=== PATIENT | male | born 1995 | race Caucasian/White ===

== ENCOUNTER → 2021-12-09 13:22 | Outpatient (BNVA) | payer MEDICAID, SELFPAY | PROVIDERS: Family Provider Family Medicine; Visit Provider Podiatrist Foot & Ankle Surgery | DX: X58.XXXA Exposure to other specified factors, initial encounter (principal); M79.672 Pain in left foot; T84.223A Displacement of internal fixation device of bones of foot and toes, initial encounter; M67.90 Unspecified disorder of synovium and tendon, unspecified site | CPT/HCPCS: 99204 ==

== ENCOUNTER → 2021-12-09 13:28 | Outpatient (BNVA) | payer MEDICAID, SELFPAY | PROVIDERS: Family Provider Family Medicine; Visit Provider Podiatrist Foot & Ankle Surgery | DX: M79.671 Pain in right foot (principal) | CPT/HCPCS: 73630 ==

== ENCOUNTER 2021-12-17 10:13 | Day surgery (SDC) | payer MEDICAID, SELFPAY ==
[2021-12-16 13:57] VITALS: BMI 33.0
[2021-12-17] VITALS (7 sets, daily range): BP systolic 112–175; BP diastolic 68–106; PULSE 78–101; RESP 16–18; TEMP 36.2–37.3; O2SAT 91–97
[2021-12-17] MEDS: gabapentin 300 mg Capsule PO (10:58)
[2021-12-17] MEDS: CELEcoxib 200 mg Capsule 400 MG PO (10:58)
[2021-12-17] MEDS: sodium chloride 0.9% 1,000 ML 30 ML IV (10:59)
--- NOTE | 2021-12-17 11:55 | W.PM.OPSUD ---
Surgery/Procedure H&P Update DATE OF PROCEDURE: December 17, 2021 DATE H&P PERFORMED: 12/09/21 CHANGES TO PREVIOUS DOCUMENTATION: none PREOP DIAGNOSIS: Painful retained orthopedic hardware left foot; PLANNED PROCEDURE: Operation Date: 12/17/21 12:00 Proposed Procedures p Hardware removal right foot 2.Exostectomy 89750 3.Tendon transfer 04328,T84.223,M24.574(Right) - SHERRY Banks Exostectomy(Right) - SHERRY Banks Tendon Transfer Foot(Right) - Eric Fuller DPM
[2021-12-17] MEDS: ceFAZolin 2,000 MG in sodium chloride 0.9% (plus) 50 ML 100 MG IV (12:27)
--- NOTE | 2021-12-17 12:55 | PM.OP ---
Operative Report Date of procedure: December 17, 2021 Pre-op diagnosis: Painful retained hardware left foot Exostosis left foot Left peroneal tendinosis Post-op diagnosis: Painful retained hardware left foot. Exostosis of the left fifth metatarsal base and cuboid. Left peroneal brevis tendon tear. Procedure done: Deep hardware removal left foot foot 55114 Exostectomy left foot 80230 Tendon transfer left foot 35944 Implants: 10 cc of Exparel expanded with 10 cc of saline, 0.5% Marcaine plain injected preoperatively for total of 30 cc. 2-0 Vicryl, 4-0 Vicryl, 4-0 nylon, 0 Ethibond Specimens removed/disposition: Screw from fifth metatarsal removed in total. Pathology: None Surgeon: Eric Fuller DPM Homoeopath: Dr New Carlos Estimated blood loss: 0 See intraoperative documentation IV fluids: 0 Urine output: 0 Complications: None Findings: Proud hardware backing out of the fifth metatarsal of the left foot, exostosis of the fifth metatarsal base and lateral cuboid of the left foot. Tear of the left peroneal brevis tendon. Brief History: -Patient seen and evaluated. All patient questions answered to patient satisfaction -Discussed etiology of pain and that it is related to orthopedic hardware of left foot which is backing out.? Also discussed the possibility of having to reattach the peroneus brevis tendon as it inserts to the base of the fifth metatarsal tuberosity in this area.? Discussed conservative versus surgical options with the patient.? Patient wants proceed with surgery at this time. -I reviewed at length with the patient, the risks, potential complications, benefits, alternatives, expectations, and typical outcomes associated with thesurgery. The risks and potential complications were explained in detail, including but not limited to infection, wound dehiscence or soft tissue complications, bleeding and hematoma, chronic edema, neuritis or nerve damage producing numbness or chronic pain, CRPS, failure to relieve pain or worsening pain, thick / painful / unsightly scar, limited motion / stiffness, malposition, delayed union, malunion, or nonunion, fracture, reaction to implants, anesthetic complications, venous thromboembolism, and deformity, recurrence.? I discussed the notion of no regrets with the patient as it pertains to complications and outcomes. The patient seemed to understand the nature of the proposed care and required convalescence. They asked appropriate questions, answered to theirsatisfaction. They are aware no guarantees can be made as to a satisfactory outcome and they understand there may be other possible unforeseen complications or outcomes not listed here that will be treated accordingly if they arise. There were no written or implied guarantees given to the patient. They gave informed consent to proceed. -Patient to remain nonweightbearing to the left lower extremity using crutches/knee scooter -Prescription for knee scooter sent for the patient -We will plan for surgery 12/17/2021 for left foot hardware removal, fifth metatarsal exostectomy and possible peroneus brevis tendon transfer -We will follow-up with the patient 1 week postoperatively Procedure: Under mild sedation the patient was brought to the operating room and remained on the gurney in supine position. A timeout was performed. Anesthesia was then administered by the anesthesia service. Local anesthesia injected by myself consisting of 30 cc of 0.5% Marcaine plain left reverse Gordon block. Additional local anesthetic was infiltrated in a grid like fashion subcutaneously a total of 10 cc of Exparel and 10 cc of saline for expansion per train planner recommendation and technique. Well-padded pneumatic tourniquet applied to the left ankle. The left lower extremity was then scrubbed, prepped and draped utilizing normal aseptic technique. Left foot was exanguinated with an Esmarch bandage and the tourniquet inflated to 250 mmHg. Attention was directed to the lateral aspect of the left forefoot where bony landmarks were palpated, was able to identify the fifth metatarsal base and was able to palpate a proud screw through skin. Directly over the previous incision a #15 blade was utilized to perform an incision through skin and dissection carried down through subcutaneous tissue to the layer of the peroneal brevis tendon and base of the fifth metatarsal periosteum utilizing sharp and blunt technique. Care was taken to retract and preserve neurovascular and tendinous structures. All bleeders were ligated and cauterized as necessary. A hex lobe screwdriver utilized to extract the implanted screw in total and this was passed from operative field. Intraoperative fluoroscopy confirmed total removal of the screw without any fragmentation or failure. The incision was flushed with saline solution. Attention was then directed to the base of the fifth metatarsal where a loose osseous body was appreciated, this was excised in total with exostectomy performed utilizing pickups a #15 blade and all rough edges being smoothed at the fifth metatarsal base exostosis with a hand rasp. In like fashion a small exostosis at the dorsal lateral aspect of the left cuboid distally was also excised with exostectomy performed with rongeur and hand rasp for smoothing of all rough edges. The incision was then flushed with saline solution. Attention was directed to the peroneal brevis just prior to its insertion there was fibrosing with significant tenosynovitis which was sharply debrided with pickups and a 15 blade, nonabsorbable suture from previous surgery had significant fibrosing, this was excised in total and all previous suture was removed and passed from operative field. Under direct visualization the peritoneal tendon of the peroneal brevis was inspected and degenerative, thickening and tearing of the peroneal brevis was appreciated, devitalized for tendon was sharply debrided and excised and passed from operative field and the portions of the peroneal brevis tendon that were attached to the osseous body that was free-floating was remodeled and transferred more anteriorly and dorsally to the fifth metatarsal base utilizing a bone tunnel and 0 Ethibond with excellent bony apposition and tension noted. Incision was flushed with copious amounts of sterile saline solution followed by closure consisting of 2-0 Vicryl at deep fascia, 4-0 Vicryl subcutaneous tissue and 4-0 nylon at skin. Incision was then dressed with Adaptic, sterile 4 x 4's, Kerlix and a well-padded multilayer compressive posterior splint was applied to the left lower extremity with ankle in neutral position. Tourniquet was deflated and a prompt hyperemic response is noted to the distal digits of the left foot. Patient tolerated the procedure and anesthesia well and was transferred to the PACU with vital signs stable and vascular status intact. Following a period of postoperative monitoring he will be discharged home is to remain strict nonweightbearing and elevate his left foot at all times while resting. He was prescribed hydrocodone 10 to be taken every 6 hours as needed for pain and may supplement with [id number] ibuprofen up to 800 mg 3 times daily. Was given my cell phone number to contact me with any postoperative questions or concerns. Will follow-up in podiatry clinic next week.
--- NOTE | 2021-12-17 12:59 | XR_ITS ---
WS: [id number] Left foot, 3 views, 12/17/2021 Clinical Data: Postop hardware removal Comparison: Left foot, 12/09/2021 Findings: The orthopedic screw at the base of the left fifth metatarsal has been removed. The remainder of the left foot is unremarkable. XR/XR foot LT min 3V* [id number] Impression: Removal of orthopedic screw from base of left fifth metatarsal.
--- NOTE | 2021-12-17 13:26 | ANES.PREANE2 ---
Pre-Anesthetic Assessment Height/Weight: Height 1.78 m Weight 104.326 kg Temp Pulse Resp BP Pulse Ox O2 Del Method 99.2 F 101 H 18 175/106 96 12/17/21 10:36 12/17/21 10:36 12/17/21 10:36 12/17/21 10:36 12/17/21 10:36 12/17/21 10:54 Preop Diagnosis: Painful retained orthopedic hardware left foot; Operation Date: 12/17/21 12:00 Proposed Procedures p Hardware removal right foot 2.Exostectomy 73692 3.Tendon transfer 32559,T84.223,M24.574(Right) - Eric Fuller DPM s Exostectomy(Right) - SHERRY Banks Tendon Transfer Foot(Right) - Eric Fuller DPM Familial anesthetic complications: none Was Beta Traci taken within 24 hours: N/A Was Clonidine taken within 24 hours: N/A Last intake: Intake Last Liquid Date 12/16/21 Last Liquid Time 19:30 Last Solid Date 12/16/21 Last Solid Time 19:30 Social Tobacco (chews) and No alcohol smokes occ richard Airway Submandibular: within normal limits Cervical ROM: within normal limits Mallampati: Class II Dentition: full Metabolic Morbid Obesity Anesthetic Plan ASA status: 2 Anesthesia: General Medications/Allergies Home Medications Medication Instructions Recorded Confirmed Last Taken Type Knee Scooter #1 ea 12/09/21 12/09/21 Unknown Rx hydrocodone 10 mg-acetaminophen 1 tab PO Q6H PRN pain 7 days #28 12/17/21 Unknown Rx 325 mg tablet tabs Allergies Allergy/AdvReac Type Severity Reaction Status Date / Time Latex Allergy Mild ADR-Itching Uncoded 12/16/21 13:52 Tramadol Allergy Mild ADR-Headach Uncoded 12/09/21 13:42 e Current Medications Generic Name Dose Route Start Last Admin Trade Name Freq PRN Reason Stop Dose Admin Sodium Chloride 1,000 mls @ 30 mls/hr 12/17/21 10:45 12/17/21 10:59 Sodium Chloride 0.9% IV 12/18/21 10:44 30 mls/hr .Q24H HU Administration PFSH Anesthesia Social History Smoking and tobacco status: never smoked Data Anesthesia Cardiac Studies: No Data to Display
[2021-12-17] MEDS: HYDROcodone-acetaminophen 10-325 mg Tablet 1 TAB PO (14:17)
--- NOTE | 2021-12-17 16:52 | ANE.PACU2 ---
Inpatient post-anesthesia follow up: Airway intact: Yes Vital signs: Temperature 97.2 F Pulse Rate 78 Respiratory Rate 18 Blood Pressure 132/81 Pulse Oximetry 97 Oxygen Delivery Me thod Room Air Oxygen Flow Rate Fraction of Inspir ed Oxygen Hydration adequate: Yes Nausea and vomiting: No Pain level: 2 Mental status: Baseline
== END 2021-12-17 14:42 | disposition home or self-care (01) ==
PROVIDERS: PCP Nurse Practitioner Family; Visit Provider Podiatrist Foot & Ankle Surgery
PROC: (CPT 20670; principal; 2021-12-17 12:00)
PROC: (CPT 28288; 2021-12-17 12:00)
PROC: (CPT 20670; 2021-12-17 12:00)
DX: T84.84XA Pain due to internal orthopedic prosthetic devices, implants and grafts, initial encounter (principal); M79.672 Pain in left foot; M67.874 Other specified disorders of tendon, left ankle and foot; Z88.5 Allergy status to narcotic agent; Z91.040 Latex allergy status; Y83.8 Other surgical procedures as the cause of abnormal reaction of the patient, or of later complication, without mention of misadventure at the time of the procedure
CPT/HCPCS: 20670; 27690; 28288; 73630; C1713; C9290; J2250; J2704; J3010; J3490; J7030

== ENCOUNTER → 2021-12-30 10:17 | Outpatient (BNVA) | payer MEDICAID, SELFPAY | PROVIDERS: PCP Nurse Practitioner Family; Visit Provider Podiatrist Foot & Ankle Surgery | DX: T84.223A Displacement of internal fixation device of bones of foot and toes, initial encounter (principal); M67.90 Unspecified disorder of synovium and tendon, unspecified site; W19.XXXA Unspecified fall, initial encounter; Z98.890 Other specified postprocedural states | CPT/HCPCS: 73630; 99024 ==

== ENCOUNTER 2021-12-30 15:10 | Outpatient (CLI) | payer MEDICAID, SELFPAY | END 2021-12-30 15:11 | disposition home or self-care (01) | LOC: SPT 15:11 | PROVIDERS: PCP Nurse Practitioner Family; Visit Provider Podiatrist Foot & Ankle Surgery | DX: Z98.890 Other specified postprocedural states (principal) | CPT/HCPCS: 97760; L4361 ==

== ENCOUNTER → 2022-01-13 09:52 | Outpatient (BNVA) | payer MEDICAID, SELFPAY | PROVIDERS: PCP Nurse Practitioner Family; Visit Provider Podiatrist Foot & Ankle Surgery | DX: M25.551 Pain in right hip (principal); M67.90 Unspecified disorder of synovium and tendon, unspecified site; Z98.890 Other specified postprocedural states | CPT/HCPCS: 73630; 99024 ==

== ENCOUNTER → 2022-01-27 12:53 | Outpatient (BNVA) | payer MEDICAID, SELFPAY | PROVIDERS: PCP Nurse Practitioner Family; Visit Provider Podiatrist Foot & Ankle Surgery | DX: Z98.890 Other specified postprocedural states (principal); T84.223A Displacement of internal fixation device of bones of foot and toes, initial encounter; Y79.2 Prosthetic and other implants, materials and accessory orthopedic devices associated with adverse incidents; M67.90 Unspecified disorder of synovium and tendon, unspecified site | CPT/HCPCS: 99024 ==